=== PATIENT | female | born 2000 | race Caucasian/White ===

== ENCOUNTER 2019-03-10 17:59 | Emergency (ER) | payer OTHER ==
[~2019-03-10] VITALS: Ht 165.1 cm; Wt 59.0 kg
[2019-03-10 18:05] VITALS: BP_SYST 135
[2019-03-10] MEDS ORDERED: ALBUTEROL SULFATE 0.083% 2.5 MG/3 ML VIAL.NEB INH ONE ×2 (18:15)
[2019-03-10] MEDS ORDERED: methylPREDNISolone SOD SUCC/PF 62.5 MG/ML VIAL IVP ONE (18:15)
[2019-03-10] MEDS ORDERED: IPRATROPIUM BROM 0.5 MG/2.5 ML VIAL.NEB (ATROVENT) INH ONE ×2 (18:15)
[2019-03-10] MEDS ORDERED: MAGNESIUM SULFATE 1 GM in NS 50 ML IV ONE (18:15)
--- NOTE | 2019-03-10 18:15 | NUR ---
RT at bedside administering inhalation treatment as ordered by Dr. Villa. Patient tolerated the medications well.
--- NOTE | 2019-03-10 18:15 | NUR ---
Patient arrived in the ED accompanied by her , c/o asthma exacerbation that started today Patient denied any chest pain. Denied any fevers or chills. Patient is alert and oriented x4, respirations even, speaking in full sentences, and ambulating with a steady gait. VSS, pain level 0/10. Informed of the approximate wait time. Instructed to notify ED staff for any changes in condition or worsening of symptoms. Patient verbalized understanding.
--- NOTE | 2019-03-10 18:15 | NUR ---
Patient to ER bed 1 to gown for evaluation. Side rails up.
--- NOTE | 2019-03-10 18:20 | NUR ---
ER at bedside examining patient.
--- NOTE | 2019-03-10 18:35 | NUR ---
Patient ambulated to the bathroom with a steady gait. Urine specimen collected and dropped off at the lab. Urine dip and preg done.
--- NOTE | 2019-03-10 18:55 | NUR ---
# 20 gauge angiocath placed to LAC. Use of asceptic technique. Opsite placed over site. Blood return noted. Flushed with 10 cc of normal saline. No evidence of infiltration noted. Patient tolerated well.
[2019-03-10] MEDS ORDERED: MAGNESIUM SULFATE 1 GM/2 ML VIAL ONE (18:59)
--- NOTE | 2019-03-10 19:08 | NUR ---
Report given and care transferred to KIARA Hernandez.
[2019-03-10] MEDS ORDERED: BECL8.7A6 INH (19:57)
[2019-03-10] MEDS ORDERED: ALBU8.5H5 INH (19:57)
[2019-03-10 20:00] VITALS: BP_SYST 122
--- NOTE | 2019-03-10 20:01 | NUR ---
REASSESSMENT BY ERMD; PREPARATIONS TO DISCHARGE; BREATHSOUNDS NEARLY CLEAR WITH RARE FAINT WHEEZE NOTED; PATIENT IS EUPNEIC; ACI GIVEN AND PATIENT INDICATED FULL UNDERSTANDING; IV OUT AND DRESSES AND PATIENT DISCHARGED AMBULATORY; IMPROVED
== END 2019-03-10 20:01 | disposition home or self-care (01) ==
LOC: SED 17:59
DX: J45.901 Unspecified asthma with (acute) exacerbation (principal)
CPT/HCPCS: 81002; 81025; 94640; 96365; 96375; 99284; J2930; J3475; J7613